=== PATIENT | female | born 1985 | race Caucasian/White ===

== ENCOUNTER 2020-12-26 18:33 | Emergency (ER) | payer OTHER, BC ==
--- OUTSIDE RECORDS SUMMARY | 2020-12-26 18:35 | XMS REPORT | Continuity of Care Document ---
:1985 Author Organization [facility] t Address [address] [place] [address] Care Team Providers Name Role Phone Minerva Boyce MD Primary Care Physician Lab, Fam Pob I Attending Clinician Unavailable Doctor Unassigned, Name Attending Clinician Unavailable JOAQUIN GIORDANO Attending Clinician Unavailable JEWELL Attending Clinician Unavailable MARISA FRANCO Admitting Clinician Unavailable Problems Condition Condition Condition Status Onset Resolution Last Treating Co mments Source Name Details Category Date Date Treatment Clinician Date Biliary Biliary Disease Active [facility] 00 [place] Acute Acute Disease Active [facility] cholecysti cholecysti 04-09 Jazmin kes - tis tis 00:00: Medical 00 [place] RUQ RUQ Disease Active [facility] abdominal abdominal 04-09 [facility] - pain pain 00:00: Medical 00 [place] Acute Acute Disease Active [facility] vomiting vomiting 04-09 [facility] 00 [place] Allergies, Adverse Reactions, Alerts Allergy Allergy Status Severity Reaction(s) Onset Inactive Treating Comm ents Source Name Type Date Date Clinician Sulfa Drug Active Hives [facility] (S[facility] Allergy 7-18 [facility] ics) Sulfa Drug Active Rash [facility] (Sulfona Allergy 8-05 [facility] Antibiot 00 Center ics) Social History Social Habit Start Date Stop Date Quantity Comments Source Sex Assigned At [facility] Tobacco use and 2018-05-02 2018-05-02 Never used JANEL Carter kes - exposure 00:00:00 [facility]:00:00 [facility] Alcohol intake 2018-05-02 2018-05-02 Current drinker of JORGE Meade - 00:00:00 00:00:00 alcohol (finding) [facility] Alcohol Comment 2018-04-08 2018-04-08 occasional JANEL Walkers - 00:00:00 00:00:00 [facility] Smoking Status Start Date Stop Date Source Never smoker J[facility]EL Meade - [facility] Medications Ordered Filled Start Stop Current Ordering Indication Dosage Frequency Signature Comments Components Source Medication Medication Date Date Medication? Clinician (SIG) Name Name Lactobacill Yes 1{capsu Q.5D Take [address] [facility] 8-12 le} capsule by [facility] - acidophilus 00:00: mouth 2 Med ical (PROBIOTIC 00 (two) Center ACIDOPHILUS times ) 1.5 mg daily. (250 million cell) Cap Procedures This patient has no known procedures. Plan of Care Planned Activity Planned Date Details Comments Source Future Scheduled 2020-05-[address] [facility] - Test 00:00:00 (#1) [code = [facility] INFLUENZA VACCINE (#1)] Future Scheduled 2005 Screening for JANEL Carterk es - Test 00:00:00 malignant neoplasm Medical C enter of cervix (procedure) [code = 931410506] Future Scheduled [address] [facility] - Test 00:00:00 (procedure) [code = [facility] 44706977] Encounters Start End Encounter Admission Attending Care Care Encounter Source Date/Time Date/Time Type Type Clinicians Facility Department ID 2020-07-11 2020-07-11 Laboratory Lab, Adc [facility] [id number] 14:39:36 14:59:36 Only [facility]am [facility] [id number] [place] [id number] [place] [id number] nal [address] 2020-07-11 2020-07-11 Letter Doctor ROSA ISELA [id number] 00:00:00 00:00:00 (Out) Unassigned, [place] [id number] [place] [facility] [id number] [id number] Results Test Description Test Time Test Comments Results Result Sourc e Comments RAD, ABDOMEN 2018-05-02 Reason for FINAL REPORT PATIENT SERIES W/ UPRIGHT 22:15:00 exam:->EMESISR ID: [id number] RAD, PA CHEST jesus for ABDOMEN SERIES W/ exam:->ABDOMIN UPRIGHT PA CHEST AL PAIN CLINICAL INDICATION: EMESISABDOMINAL PAIN COMPARISON: None FINDINGS: An upright view the chest and upright and supine views of the abdomen. Frontal view of the chest reveals no free subdiaphragmatic air. There is no focal consolidation. The costophrenic sulci are clear. Mediastinal contours are unremarkable. There is no bowel dilation. There are no abnormal calcifications. IMPRESSION: Nonobstructed bowel gas pattern. Unremarkable frontal view of the chest. Signed: JR Yeung Robert MDReport Verified Date/Time: 05/02/2018 22:15:26 Reading Location: [facility] [id number] CT Body Reading Room ALYSIS W/ REFLEX URINE CULTURE 2018-05-02 21:59:00 Test Item Value Reference Range Interpretation Comme nts COLOR (BEAKER) (test code = 470) Yellow CLARITY (BEAKER) (test code = 469) Clear SPECIFIC GRAVITY UA (BEAKER) (test code = 468) 1.021 1.001-1 .035 PH UA (BEAKER) (test code = 467) 5.0 5.0-8.0 PROTEIN UA (BEAKER) (test code = 464) Negative Negative GLUCOSE UA (BEAKER) (test code = 365) Negative Negative KETONES UA (BEAKER) (test code = 371) 40 mg/dL Negative A BILIRUBIN UA (BEAKER) (test code = 462) Negative Negative BLOOD UA (BEAKER) (test code = 461) Negative Negative NITRITE UA (BEAKER) (test code = 465) Negative Negative LEUKOCYTE ESTERASE UA (BEAKER) (test code = 466) Large Negat kelly A UROBILINOGEN UA (BEAKER) (test code = 463) 0.2 mg/dL 0.2-1.0 RBC UA (BEAKER) (test code = 519) 1 /HPF WBC UA (BEAKER) (test code = 520) 1 /HPF BACTERIA (BEAKER) (test code = 517) Rare MUCUS (BEAKER) (test code = 1574) Occasional SQUAMOUS EPITHELIAL (BEAKER) (test code = 516) 2 /HPF SOURCE(BEAKER) (test code = 2795) SCREEN, [id number] 21:53:00 Test Item Value Reference Range Interpretation Comments TEST URINE (BEAKER) (test Negative code = 583) U/S, ABDOMINAL, [id number] 21:28:00Reason for exam:->EMESISReason for exam:->ABDOMINAL PAINReason for exam:->s/p cholecystectomyFINAL REPORT INDICATION: EMESISABDOMINAL PAINs/p cholecystectomy COMPARISON: April 10, 2018 TECHNIQUE: Real-time transabdominal camacho scale and color Doppler ultrasound of the abdominal right upper quadrant. FINDINGS:Liver: Size: 15cm. Echogenicity: Homogeneously increased. Masses/lesions: None. Surface Nodularity: None. Intrahepatic bile ducts: Normal. Common bile duct: 0.3cm. MPV: 1.2cm. Gallbladder: Surgically absent. Pancreas: Head and uncinate process: Not well seen. Body and tail: Not well-seen. Right kidney: Size: 10.3 x 4.5 x 5.4 cm. Parenchyma: Normal echogenicity. No cysts. No stones. Hydronephrosis: None. Ascites: None. Regional Vasculature: The visible abdominal aorta, IVC and hepatic veins are patent. Additional Findings: Trace fluid in the region of gallbladder fossa, nonspecific. IMPRESSION: Post cholecystectomy with nonspecific fluid in the region of the gallbladder fossa. Although this may relateto operative changes, small bile leak cannot be excluded. If there are clinical suspicions for bile leak, nuclear medicine scintigraphy is advised. No ductal dilation. Signed: JR Yeung Robert MDReport Verified Date/Time: 05/02/2018 21:28:14 Reading Location: [address] Body Reading Room B-TYPE NATRIURETIC FACTOR (BNP)2018-05-02 20:25:00 Test Item Value Reference Range Interpretation Comments B-TYPE NATRIURETIC PEPTIDE (BEAKER) < pg/mL 0-100 (test code = 700) CREATINE KINASE (CK), TOTAL AND [id number] 20:17:00 Test Item Value Reference Range Interpretation Comments CREATINE KINASE TOTAL (BEAKER) 28 U/L 29-200 L (test code = 380) CREATINE KINASE-MB (BEAKER) (test 0.4 ng/mL 0.0-6.6 code = 750) CREATINE KINASE-MB INDEX (BEAKER) 1.4 % (test code = 395) CK-MB Reference Range:<6.7 Normal6.7-10.0 Borderline>10.0 AbnormalTROPONIN [id number] 20:17:00 Test Item Value Reference Range Interpretation Comments TROPONIN I (BEAKER) (test code = 397) < ng/mL 0.00-0.03 Troponin I (TnI) levels must be interpreted in the context of the presenting symptoms and the clinical findings. Elevated TnI levels indicate myocardial damage, but are not specific for ischemic heart disease. Elevated TnI levels are seen in patients with other cardiac conditions (including myocarditis and congestive heart failure), and slight TnI elevations occur in patients with other conditions, including sepsis, renal failure, acidosis, acute neurological disease, and persistent tachyarrhythmia.[id number] 20:10:00 Test Item Value Reference Range Interpretation Comments PHOSPHORUS (BEAKER) (test code = 2.6 mg/dL 2.3-4.7 604) [id number] 20:10:00 Test Item Value Reference Range Interpretation Comments MAGNESIUM (BEAKER) (test code = 2.0 mg/dL 1.6-2.6 627) COMPREHENSIVE METABOLIC [id number] 20:10:00 Test Item Value Reference Range Interpretation Comments TOTAL PROTEIN 7.6 gm/dL 6.0-8.3 (BEAKER) (test code = 770) ALBUMIN (BEAKER) 4.3 g/dL 3.5-5.0 (test code = 1145) ALKALINE PHOSPHATASE 124 U/L 40-150 (BEAKER) (test code = 346) BILIRUBIN TOTAL 1.2 mg/dL 0.2-1.2 (BEAKER) (test code = 377) SODIUM (BEAKER) (test 139 meq/L 136-145 code = 381) POTASSIUM (BEAKER) 4.0 meq/L 3.5-5.1 (test code = 379) CHLORIDE (BEAKER) 109 meq/L 98-107 H (test code = 382) CO2 (BEAKER) (test 21 meq/L 22-29 L code = 355) BLOOD UREA NITROGEN 16 mg/dL 7-21 (BEAKER) (test code = 354) CREATININE (BEAKER) 0.87 mg/dL 0.57-1.25 (test code = 358) GLUCOSE RANDOM 107 mg/dL 70-105 H (BEAKER) (test code = 652) CALCIUM (BEAKER) 9.0 mg/dL 8.4-10.2 (test code = 697) AST (SGOT) (BEAKER) 14 U/L 5-34 (test code = 353) ALT (SGPT) (BEAKER) 12 U/L 6-55 (test code = 347) EGFR (BEAKER) (test 75 mL/min/1.73 ESTIMA GULSHAN GFR IS code = 1092) sq m NOT ACCURATE CREATININE CLEARANCE IN PREDICTING GLOMERULAR FILTRATION RATE . ESTIMATED GFR I S NOT APPLICABLE FOR DIALYSIS PATIEN TS. [id number] 20:10:00 Test Item Value Reference Range Interpretation Comments LIPASE (BEAKER) (test code = 749) 36 U/L 8-78 [id number] 20:09:00 Test Item Value Reference Range Interpretation Comments PROTIME (BEAKER) (test code = 13.6 seconds 11.7-14.7 759) INR (BEAKER) (test code = 370) 1.0 <=5.9 PARTIAL THROMBOPLASTIN TIME 30.3 seconds 22.5-36.0 (BEAKER) (test code = 760) RECOMMENDED COUMADIN/WARFARIN INR THERAPY RANGESSTANDARD DOSE: 2.0 - 3.0 Includes: PROPHYLAXIS forvenous thrombosis, systemic embolization; TREATMENT for venous thrombosis and/or pulmonary embolus.HIGH RISK: Target INR is 2.5-3.5 for patients with mechanical heart valves.CBC W/PLT COUNT & AUTO DIFFERENTIAL 2018-05-02 20:08:00 Test Item Value Reference Range Interpretation Comments WHITE BLOOD CELL COUNT (BEAKER) 10.1 K/ L 3.5-10.5 (test code = 775) RED BLOOD CELL COUNT (BEAKER) 4.74 M/ L 3.93-5.22 (test code = 761) HEMOGLOBIN (BEAKER) (test code = 14.0 GM/DL 11.2-15.7 410) HEMATOCRIT (BEAKER) (test code = 43.5 % 34.1-44.9 411) MEAN CORPUSCULAR VOLUME (BEAKER) 91.8 fL 79.4-94.8 (test code = 753) MEAN CORPUSCULAR HEMOGLOBIN 29.5 pg 25.6-32.2 (BEAKER) (test code = 751) MEAN CORPUSCULAR HEMOGLOBIN CONC 32.2 GM/DL 32.2-35.5 (BEAKER) (test code = 752) RED CELL DISTRIBUTION WIDTH 13.2 % 11.7-14.4 (BEAKER) (test code = 412) PLATELET COUNT (BEAKER) (test 188 K/CU MM 150-450 code = 756) MEAN PLATELET VOLUME (BEAKER) 11.2 fL 9.4-12.3 (test code = 754) NUCLEATED RED BLOOD CELLS 0 /100 WBC 0-0 (BEAKER) (test code = 413) NEUTROPHILS RELATIVE PERCENT 92 % (BEAKER) (test code = 429) LYMPHOCYTES RELATIVE PERCENT 4 % (BEAKER) (test code = 430) MONOCYTES RELATIVE PERCENT 3 % (BEAKER) (test code = 431) EOSINOPHILS RELATIVE PERCENT 0 % (BEAKER) (test code = 432) BASOPHILS RELATIVE PERCENT 0 % (BEAKER) (test code = 437) NEUTROPHILS ABSOLUTE COUNT 9.27 K/ L 1.56-6.13 H (BEAKER) (test code = 670) LYMPHOCYTES ABSOLUTE COUNT 0.43 K/ L 1.18-3.74 L (BEAKER) (test code = 414) MONOCYTES ABSOLUTE COUNT (BEAKER) 0.29 K/ L 0.24-0.36 (test code = 415) EOSINOPHILS ABSOLUTE COUNT 0.03 K/ L 0.04-0.36 L (BEAKER) (test code = 416) BASOPHILS ABSOLUTE COUNT (BEAKER) 0.03 K/ L 0.01-0.08 (test code = 417) IMMATURE GRANULOCYTES-RELATIVE 0 % 0-1 PERCENT (BEAKER) (test code = 2801) TISSUE [id number] 18:36:00Surgical Pathology Report Case: [id number] Authorizing Provider: Ananth Franco MD Collected: 04/10/2018 3968 Ordering Location: [address] Received: 04/10/2018 1533 Service Pathologist: Lakeisha Mejia MD Specimen: Gallbladder GALLBLADDER, CHOLECYSTECTOMY: - ACUTE AND CHRONIC CHOLECYSTITIS WITH CHOLELITHIASIS Signing Pathologist Direct Phone Line: [phone] signed by Lakeisha Mejia MD on 04/14/2018 at 6:36 [id number] cholecystitis Gallbladder Received fresh labeled "gallbladder" is a 7.5 x 3.0 x 2.0 cm focally disruptedgallbladder. The serosal surface is purple- clark and exhibits cautery artifact on the hepatic surface.The lumen contains yellow-green to red mucoid bile and three irregular yellow-gold bosselated calculi ranging in size from 1.0 cm to 1.5 cm in greatest dimension. The mucosal surface is yellow-green tored, velvety and glistening. The wall measures up to 0.2 cm in maximum thickness. Section code: A1, parallel cystic duct resection margin; A2, wholesale representative section of gallbladder. DB/pl Performed.HEPATIC FUNCTION [id number] 05:06:00 Test Item Value Reference Range Interpretation Comments TOTAL PROTEIN (BEAKER) (test code = 6.1 gm/dL 6.0-8.3 770) ALBUMIN (BEAKER) (test code = 1145) 3.4 g/dL 3.5-5.0 L BILIRUBIN TOTAL (BEAKER) (test code 0.4 mg/dL 0.2-1.2 = 377) BILIRUBIN DIRECT (BEAKER) (test 0.2 mg/dL 0.1-0.5 code = 706) ALKALINE PHOSPHATASE (BEAKER) (test 90 U/L 40-150 code = 346) AST (SGOT) (BEAKER) (test code = 24 U/L 5-34 353) ALT (SGPT) (BEAKER) (test code = 16 U/L 6-55 347) BASIC METABOLIC [id number] 05:06:00 Test Item Value Reference Range Interpretation Comments SODIUM (BEAKER) 138 meq/L 136-145 (test code = 381) POTASSIUM (BEAKER) 4.4 meq/L 3.5-5.1 (test code = 379) CHLORIDE (BEAKER) 111 meq/L 98-107 H (test code = 382) CO2 (BEAKER) (test 22 meq/L 22-29 code = 355) BLOOD UREA NITROGEN 8 mg/dL 7-21 (BEAKER) (test code = 354) CREATININE (BEAKER) 0.74 mg/dL 0.57-1.25 (test code = 358) GLUCOSE RANDOM 146 mg/dL 70-105 H (BEAKER) (test code = 652) CALCIUM (BEAKER) 8.7 mg/dL 8.4-10.2 (test code = 697) EGFR (BEAKER) (test 90 mL/min/1.73 ESTIMA GULSHAN GFR IS code = 1092) sq m NOT ACCURATE CREATININE CLEARANCE IN PREDICTING GLOMERULAR FILTRATION RATE . ESTIMATED GFR I S NOT APPLICABLE FOR DIALYSIS PATIEN TS. CBC (HEMOGRAM ONLY)2018-04-11 04:31:00 Test Item Value Reference Range Interpretation Comments WHITE BLOOD CELL COUNT (BEAKER) 8.6 K/ L 3.5-10.5 (test code = 775) RED BLOOD CELL COUNT (BEAKER) 3.96 M/ L 3.93-5.22 (test code = 761) HEMOGLOBIN (BEAKER) (test code = 11.5 GM/DL 11.2-15.7 410) HEMATOCRIT (BEAKER) (test code = 35.4 % 34.1-44.9 411) MEAN CORPUSCULAR VOLUME (BEAKER) 89.4 fL 79.4-94.8 (test code = 753) MEAN CORPUSCULAR HEMOGLOBIN 29.0 pg 25.6-32.2 (BEAKER) (test code = 751) MEAN CORPUSCULAR HEMOGLOBIN CONC 32.5 GM/DL 32.2-35.5 (BEAKER) (test code = 752) RED CELL DISTRIBUTION WIDTH 13.1 % 11.7-14.4 (BEAKER) (test code = 412) PLATELET COUNT (BEAKER) (test 209 K/CU MM 150-450 code = 756) MEAN PLATELET VOLUME (BEAKER) 11.7 fL 9.4-12.3 (test code = 754) NUCLEATED RED BLOOD CELLS 0 /100 WBC 0-0 (BEAKER) (test code = 413) U/S, ABDOMINAL, [id number] 00:14:00Abdomen limited area? Add comment if clarification is needed.->Right upper quadrantReason for exam:->ABDOMINAL PAINFINAL REPORT Exam: Limited abdominal ultrasound. Clinical History: Abdominalpain. Comparison: No prior study for direct comparison. Findings: Sonographic evaluation of the right upper quadrant of the abdomen was performed. Liver: 18 cm in length at the right midclavicular line. Normal echogenicity. No lesion is identified by ultrasound. Main portal vein is patent measuring 1.2 cm in diameter, and demonstrates hepatopetal flow. Biliary tree: Common duct 6 mm. No intrahepatic biliary ductal dilatation. Gallbladder: Partially contracted containing multiple shadowing stones. Gallbladder wall thickening measuring up to 10 mm with associated hyperemia. No pericholecystic fluid. A sonographic Rodríguez's sign was not assessed as the patient received pain medication priorto imaging. Pancreas: Partially visualized, unremarkable. Ascites: None seen. Right kidney: 10.8 x 4.5 x 5.3 cm with cortical thickness of 1.4 cm. Normal cortical echogenicity. No mass. No shadowing calculus. No hydronephrosis. IVC/Aorta: Segments partially seen. Unremarkable. Miscellaneous: Right pleural effusion. Impression: Cholelithiasis and gallbladder wall thickening/hyperemia which may represent acute cholecystitis in the proper clinical setting. A nuclear medicine HIDA scan may be performed to evaluate for cystic duct patency as clinically warranted.Hepatomegaly. No biliary ductal dilatation.Right pleural effusion. Signed: hKai Tatum MDReport Verified Date/Time: 04/09/2018 00:14:19 Reading Location: [address] Body Reading Room [id number] 23:50:00 Test Item Value Reference Range Interpretation Comments PARTIAL THROMBOPLASTIN TIME 30.2 seconds 22.5-36.0 (BEAKER) (test code = 760) PROTHROMBIN [id number] 23:49:00 Test Item Value Reference Range Interpretation Comments PROTIME (BEAKER) (test code = 13.9 seconds 11.7-14.7 759) INR (BEAKER) (test code = 370) 1.1 <=5.9 RECOMMENDED COUMADIN/WARFARIN INR THERAPY RANGESSTANDARD DOSE: 2.0 - 3.0 Includes: PROPHYLAXIS forvenous thrombosis, systemic embolization; TREATMENT for venous thrombosis and/or pulmonary embolus.HIGH RISK: Target INR is 2.5-3.5 for patients with mechanical heart valves.[id number] 23:38:00 Test Item Value Reference Range Interpretation Comments LIPASE (BEAKER) (test code = 749) 31 U/L 8-78 HEPATIC FUNCTION [id number] 23:38:00 Test Item Value Reference Range Interpretation Comments TOTAL PROTEIN (BEAKER) (test code = 6.6 gm/dL 6.0-8.3 770) ALBUMIN (BEAKER) (test code = 1145) 3.7 g/dL 3.5-5.0 BILIRUBIN TOTAL (BEAKER) (test code 0.6 mg/dL 0.2-1.2 = 377) BILIRUBIN DIRECT (BEAKER) (test 0.3 mg/dL 0.1-0.5 code = 706) ALKALINE PHOSPHATASE (BEAKER) (test 102 U/L 40-150 code = 346) AST (SGOT) (BEAKER) (test code = 11 U/L 5-34 353) ALT (SGPT) (BEAKER) (test code = 7 U/L 6-55 347) BASIC METABOLIC [id number] 18:51:00 Test Item Value Reference Range Interpretation Comments SODIUM (BEAKER) 140 meq/L 136-145 (test code = 381) POTASSIUM (BEAKER) 3.7 meq/L 3.5-5.1 (test code = 379) CHLORIDE (BEAKER) 106 meq/L 98-107 (test code = 382) CO2 (BEAKER) (test 24 meq/L 22-29 code = 355) BLOOD UREA NITROGEN 13 mg/dL 7-21 (BEAKER) (test code = 354) CREATININE (BEAKER) 0.80 mg/dL 0.57-1.25 (test code = 358) GLUCOSE RANDOM 86 mg/dL 70-105 (BEAKER) (test code = 652) CALCIUM (BEAKER) 9.0 mg/dL 8.4-10.2 (test code = 697) EGFR (BEAKER) (test mL/min/1.73 INSUFFIC IENT CLINICAL code = 1092) sq m DATA TO CALCULA TE ESTIMATED GFR. URINALYSIS W/ REFLEX URINE [id number] 18:34:00 Test Item Value Reference Range Interpretation Comments COLOR (BEAKER) (test code = 470) Yellow CLARITY (BEAKER) (test code = 469) Clear SPECIFIC GRAVITY UA (BEAKER) (test 1.023 1.001-1.035 code = 468) PH UA (BEAKER) (test code = 467) 5.5 5.0-8.0 PROTEIN UA (BEAKER) (test code = 20 mg/dL Negative A 464) GLUCOSE UA (BEAKER) (test code = Negative Negative 365) KETONES UA (BEAKER) (test code = Negative Negative 371) BILIRUBIN UA (BEAKER) (test code = Negative Negative 462) BLOOD UA (BEAKER) (test code = 461) Negative Negative NITRITE UA (BEAKER) (test code = Negative Negative 465) LEUKOCYTE ESTERASE UA (BEAKER) Moderate Negative A (test code = 466) UROBILINOGEN UA (BEAKER) (test code 2.0 mg/dL 0.2-1.0 H = 463) RBC UA (BEAKER) (test code = 519) 1 /HPF WBC UA (BEAKER) (test code = 520) 2 /HPF MUCUS (BEAKER) (test code = 1574) Many SQUAMOUS EPITHELIAL (BEAKER) (test 2 /HPF code = 516) SOURCE(BEAKER) (test code = 2795) SCREEN, [id number] 18:30:00 Test Item Value Reference Range Interpretation Comments TEST URINE (BEAKER) (test Negative code = 583) CBC W/PLT COUNT & AUTO [id number] 18:25:00 Test Item Value Reference Range Interpretation Comments WHITE BLOOD CELL COUNT (BEAKER) 10.0 K/ L 3.5-10.5 (test code = 775) RED BLOOD CELL COUNT (BEAKER) 4.39 M/ L 3.93-5.22 (test code = 761) HEMOGLOBIN (BEAKER) (test code = 12.8 GM/DL 11.2-15.7 410) HEMATOCRIT (BEAKER) (test code = 39.0 % 34.1-44.9 411) MEAN CORPUSCULAR VOLUME (BEAKER) 88.8 fL 79.4-94.8 (test code = 753) MEAN CORPUSCULAR HEMOGLOBIN 29.2 pg 25.6-32.2 (BEAKER) (test code = 751) MEAN CORPUSCULAR HEMOGLOBIN CONC 32.8 GM/DL 32.2-35.5 (BEAKER) (test code = 752) RED CELL DISTRIBUTION WIDTH 13.3 % 11.7-14.4 (BEAKER) (test code = 412) PLATELET COUNT (BEAKER) (test 210 K/CU MM 150-450 code = 756) MEAN PLATELET VOLUME (BEAKER) 11.5 fL 9.4-12.3 (test code = 754) NUCLEATED RED BLOOD CELLS 0 /100 WBC 0-0 (BEAKER) (test code = 413) NEUTROPHILS RELATIVE PERCENT 72 % (BEAKER) (test code = 429) LYMPHOCYTES RELATIVE PERCENT 21 % (BEAKER) (test code = 430) MONOCYTES RELATIVE PERCENT 5 % (BEAKER) (test code = 431) EOSINOPHILS RELATIVE PERCENT 1 % (BEAKER) (test code = 432) BASOPHILS RELATIVE PERCENT 0 % (BEAKER) (test code = 437) NEUTROPHILS ABSOLUTE COUNT 7.23 K/ L 1.56-6.13 H (BEAKER) (test code = 670) LYMPHOCYTES ABSOLUTE COUNT 2.13 K/ L 1.18-3.74 (BEAKER) (test code = 414) MONOCYTES ABSOLUTE COUNT (BEAKER) 0.50 K/ L 0.24-0.36 H (test code = 415) EOSINOPHILS ABSOLUTE COUNT 0.12 K/ L 0.04-0.36 (BEAKER) (test code = 416) BASOPHILS ABSOLUTE COUNT (BEAKER) 0.03 K/ L 0.01-0.08 (test code = 417) IMMATURE GRANULOCYTES-RELATIVE 0 % 0-1 PERCENT (BEAKER) (test code = 2808)
--- NOTE | 2020-12-26 20:22 | RAD REPORT ---
EXAM DESCRIPTION: RAD - Chest Pa And Lat (2 Views) - 12/26/2020 7:56 pm CLINICAL HISTORY: CHEST PAIN Chest pain. COMPARISON: CHEST PA AND LAT 2 VIEW dated 11/28/2012 FINDINGS: The lungs are clear. The heart is normal in size. No displaced fractures. IMPRESSION: No acute or concerning finding suspected.
[2020-12-26 20:37] LABS: Urine Blood Trace-intact (Negative); Urine Glucose Negative (Negative); Urine Protein Negative (Negative); Urine Specific Gravity 1.015 (1.005-1.030); Urine pH 5.5 (5.0-7.0)
[2020-12-26] MEDS ORDERED: DIAZEPAM 5 MG TABLET ONE (20:37)
[2020-12-26] MEDS ORDERED: IBUPROFEN 200 MG TAB PO ONE (20:38)
[2020-12-26] MEDS ORDERED: IBUPROFEN 400 MG TAB ONE (20:38)
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
[2020-12-26 22:16] LABS: Urine Specific Gravity/Preg 1.015 (1.005-1.030)
[2020-12-26] MEDS ORDERED: CIPROFLOXACIN HCL 500 MG TAB ONE (22:19)
[2020-12-26 23:32] VITALS: TEMP 98.7
[2020-12-26 23:38] VITALS: BP 109/68; O2SAT 96
== END 2020-12-26 22:38 | disposition home or self-care (01) ==
LOC: ER 18:33
DX: S16.1XXA Strain of muscle, fascia and tendon at neck level, initial encounter (principal); S20.219A Contusion of unspecified front wall of thorax, initial encounter; N39.0 Urinary tract infection, site not specified; V49.9XXA Car occupant (driver) (passenger) injured in unspecified traffic accident, initial encounter; F90.9 Attention-deficit hyperactivity disorder, unspecified type; I34.1 Nonrheumatic mitral (valve) prolapse; F17.210 Nicotine dependence, cigarettes, uncomplicated; Z88.2 Allergy status to sulfonamides
CPT/HCPCS: 70450; 71046; 72125; 81003; 81025; 87086; 87088; 99284